=== PATIENT | male | born 1945 | race Caucasian/White ===

== ENCOUNTER 2017-03-20 21:34 | Emergency (ER) | payer MEDICARE ==
[~2017-03-20] VITALS: Ht 180.3 cm; Wt 88.2 kg
[~2017-03-20 21:34] MED LIST: IRBE150T25 PO; METO25TA91 PO; OMEP-110 PO; SIMV20TA3 PO; SOTA120T26 PO; SULF1TAB24 PO; WARF5VIA PO; WARF6TAB7 PO
[2017-03-20 22:25] LABS: HEMATOCRIT 40.1 % (39.2-51.8); HEMOGLOBIN 13.5 g/dL (13.7-18.0); WHITE BLOOD COUNT 7.9 x10^3/uL (3.4-10)
[2017-03-20 22:38] LABS: BLOOD UREA NITROGEN 21 mg/dL (7-18)
[2017-03-21] MEDS ORDERED: METF500T9 PO (00:05)
[2017-03-21] MEDS ORDERED: WARF5TAB PO (00:05)
[2017-03-21 00:41] VITALS: BP 122/68
== END 2017-03-21 00:48 | disposition home or self-care (01) ==
LOC: ED 03-21 00:42
DX: I48.0 Paroxysmal atrial fibrillation (principal); E11.9 Type 2 diabetes mellitus without complications
CPT/HCPCS: 36415; 71010; 80048; 82040; 83735; 84439; 84443; 85025; 85610; 93005; 99285